=== PATIENT | female | born 1970 | race African-American/Black ===

== ENCOUNTER 2019-02-01 03:07 | Emergency (ER) | payer OTHER ==
[~2019-02-01] VITALS: Ht 172.7 cm; Wt 75.7 kg
[~2019-02-01 03:07] MED LIST: FOLI1TAB16 PO; ZIPR40CA2 PO
[2019-02-01] MEDS ORDERED: BENZ2TAB7 PO (03:15)
[2019-02-01] MEDS ORDERED: HALO2TAB9 PO (03:15)
--- NOTE | 2019-02-01 03:25 | NUR ---
DR. BONNER AT BEDSIDE FOR MSE.
[2019-02-01] MEDS ORDERED: KETOROLAC TROMETHAMINE 30 MG INJ IM ONE (03:30)
[2019-02-01] MEDS ORDERED: LORAZEPAM 0.5 MG TABLET PO ONE (03:30)
[2019-02-01] MEDS ORDERED: KETOROLAC TROMETHAMINE 30 MG INJ ONE (03:32)
[2019-02-01] MEDS ORDERED: LORAZEPAM 0.5 MG TABLET ONE (03:32)
--- NOTE | 2019-02-01 04:07 | NUR ---
Patient discharged to home in stable conditon. Written and verbal after care instructions given. Patient verbalizes understanding of instructions. PATIENT LEFT WITH STABLE GAIT.
[2019-02-01 04:08] VITALS: BP 117/63
== END 2019-02-01 04:08 | disposition home or self-care (01) ==
LOC: ER 03:11
DX: M25.512 Pain in left shoulder (principal); M62.830 Muscle spasm of back; F17.290 Nicotine dependence, other tobacco product, uncomplicated; Z71.6 Tobacco abuse counseling; Z79.899 Other long term (current) drug therapy
CPT/HCPCS: 71045; 73030; 93005; 96372; 99283; 99406; J1885; A4663

== ENCOUNTER 2019-09-06 13:18 | Emergency (ER) | END 2019-09-06 15:54 | disposition home or self-care (01) | DX: B35.4 Tinea corporis (principal); G89.29 Other chronic pain; R10.10 Upper abdominal pain, unspecified; D25.9 Leiomyoma of uterus, unspecified; F17.200 Nicotine dependence, unspecified, uncomplicated; Z79.899 Other long term (current) drug therapy ==

== ENCOUNTER 2020-01-11 08:25 | Emergency (ER) | payer MEDICAID ==
[~2020-01-11] VITALS: Ht 172.7 cm; Wt 77.1 kg
[~2020-01-11 08:25] MED LIST changes: +BENZ2TAB7 PO; +HALO2TAB9 PO; -ZIPR40CA2 PO
--- NOTE | 2020-01-11 08:45 | NUR ---
PATIENT WAS MSE BY DR HOGUE IN ROOM 04B.
[2020-01-11 09:21] LABS: CREATININE 1.2 mg/dL (0.6-1.3); POTASSIUM 4.3 mmol/L (3.5-5.1)
[2020-01-11 09:27] LABS: BILIRUBIN,DIRECT 0.1 mg/dL (0.0-0.2); BILIRUBIN,TOTAL 0.2 mg/dL (0.2-1.0); TOTAL PROTEIN, SERUM 8.1 g/dL (6.4-8.2)
[2020-01-11 09:36] LABS: BASOPHILS % (AUTO) 0.4 % (0.0-2.0); EOSINOPHILS # (AUTO) 0.2 K/uL (0.0-0.7); HEMATOCRIT 39.8 % (31.2-41.9); HEMOGLOBIN 13.7 g/dL (10.9-14.3); LYMPHOCYTES # (AUTO) 1.5 K/uL (20.0-40.0); LYMPHOCYTES % (AUTO) 38.5 % (20.5-51.5); MEAN CORPUSCULAR HEMOGLOBIN 36.2 uug (24.7-32.8); MEAN CORPUSCULAR HGB CONC 35 g/dL (32.3-35.6); MEAN CORPUSCULAR VOLUME 104.7 fL (75.5-95.3); MONOCYTES # (AUTO) 0.4 K/uL (2.0-10.0); MONOCYTES % (AUTO) 10.9 % (0.0-11.0); NEUTROPHILS # (AUTO) 1.8 K/uL (1.8-8.9); NEUTROPHILS % (AUTO) 45.2 % (38.5-71.5); PLATELET COUNT (AUTO) 202 K/uL (179-408)
--- NOTE | 2020-01-11 12:46 | NUR ---
DR HOGUE MADE PATIENT AWARE OF TEST RESULTS.
--- NOTE | 2020-01-11 12:49 | NUR ---
Patient discharged to home in stable condition. Written and verbal after care instructions given. Patient verbalizes understanding of instructions. Stressed follow up or return to ER for worsening s/s.
[2020-01-11 12:52] VITALS: BP 116/70
== END 2020-01-11 12:54 | disposition home or self-care (01) ==
LOC: ER 08:25
DX: R07.9 Chest pain, unspecified (principal); F17.200 Nicotine dependence, unspecified, uncomplicated; R05 Cough; F20.0 Paranoid schizophrenia; Z79.899 Other long term (current) drug therapy
CPT/HCPCS: 36415; 70030-TC; 71045; 85025; 93005; A4663

== ENCOUNTER 2020-03-25 20:26 | Emergency (ER) | payer SELFPAY ==
--- NOTE | 2020-03-25 20:30 | NUR ---
PT LEFT W/O BEING TRIAGED
== END 2020-03-25 20:30 | disposition left against medical advice (07) ==
LOC: ER 20:27
DX: Z75.3 Unavailability and inaccessibility of health-care facilities (principal)

== ENCOUNTER 2025-02-17 13:24 | Emergency (ER) | payer MEDICAID ==
[~2025-02-17] VITALS: Ht 172.7 cm; Wt 75.7 kg
[~2025-02-17 13:24] MED LIST changes: -FOLI1TAB16 PO; +FOLI1TAB94 PO
[2025-02-17 13:39] LABS: BASOPHILS % (AUTO) 0.3 % (0.0-2.0); EOSINOPHILS % (AUTO) 0.1 % (0.0-7.0); HEMATOCRIT 38.1 % (31.2-41.9); HEMOGLOBIN 13.1 g/dL (10.9-14.3); LYMPHOCYTES # (AUTO) 0.9 K/uL (0.8-4.8); LYMPHOCYTES % (AUTO) 9.8 % (20.5-51.5); MEAN CORPUSCULAR HEMOGLOBIN 34.7 uug (24.7-32.8); MEAN CORPUSCULAR HGB CONC 34 g/dL (32.3-35.6); MEAN CORPUSCULAR VOLUME 101.1 fL (75.5-95.3); MONOCYTES # (AUTO) 0.6 K/uL (0.1-1.30); MONOCYTES % (AUTO) 6.7 % (0.0-11.0); NEUTROPHILS # (AUTO) 7.9 K/uL (1.8-8.9); NEUTROPHILS % (AUTO) 83.1 % (38.5-71.5); PLATELET COUNT (AUTO) 235 K/uL (179-408); RED BLOOD CELL COUNT(AUTO) 3.77 MIL/uL (3.63-4.92); RED CELL DISTRIBUTION WIDTH 13.1 % (12.3-17.7); WHITE BLOOD COUNT (AUTO) 9.5 K/uL (3.8-11.8)
[2025-02-17] MEDS ORDERED: ONDANSETRON 4 MG/2 ML VIAL ONE ×2 (13:42→16:08)
[2025-02-17] MEDS: IV NORMAL SALINE 1000 ML BAG IV ONE (13:47)
[2025-02-17] MEDS: ONDANSETRON 4 MG/2 ML VIAL IV ONE ×2 (13:47→16:12)
[2025-02-17 13:55] LABS: DIFFERENTIAL COMMENT 1
[2025-02-17 14:12] LABS: CALCIUM 9.8 mg/dL (8.5-10.1); CREATININE 2.2 mg/dL (0.6-1.3); POTASSIUM 3.4 mmol/L (3.5-5.1)
[2025-02-17 14:17] LABS: ALBUMIN 4.2 g/dL (3.4-5.0); BILIRUBIN,DIRECT 0.1 mg/dL (0.0-0.2); BILIRUBIN,TOTAL 0.2 mg/dL (0.2-1.0); TOTAL PROTEIN, SERUM 8.6 g/dL (6.4-8.2)
[2025-02-17 14:35] LABS: *AMPHETAMINE, URINE NEGATIVE (NEGATIVE); *BARBITURATE, URINE NEGATIVE (NEGATIVE); *BENZODIAZEPINE, URINE NEGATIVE (NEGATIVE); *CANNABINOID, URINE POSITIVE (NEGATIVE); *COCCAINE, URINE NEGATIVE (NEGATIVE); *OPIATE, URINE NEGATIVE (NEGATIVE); *PHENCYCLIDINE SCREEN,URINE NEGATIVE (NEGATIVE); FENTANYL, URINE NEGATIVE (NEGATIVE)
[2025-02-17 14:44] LABS: ETHANOL < 3 MG/DL (0-10)
[2025-02-17 15:03] LABS: *BLOOD, URINE 2+ (NEGATIVE); *CLARITY,URINE CLEAR (CLEAR); *COLOR,URINE YELLOW (YELLOW); *KETONES,URINE NEGATIVE (NEGATIVE); *PROTEIN,URINE 2+ (NEGATIVE); *UROBILINOGEN,URINE 0.2 E.U./dl (NORMAL); LEUKOCYTE ESTERASE ,URINE NEGATIVE (NEGATIVE); NITRITE, URINE NEGATIVE (NEGATIVE); PH,URINE 5.5 (5.0-8.0); UGLUCOSE NEGATIVE (NEGATIVE)
[2025-02-17 15:30] LABS: *BILIRUBIN,URIN 1+ (NEGATIVE)
[2025-02-17 15:31] LABS: *URINE HCG, QUAL NEGATIVE (NEGATIVE)
[2025-02-17 15:56] LABS: SQUAMOUS EPITHELIAL CELL,UR FEW /HPF (NONE SEEN)
[2025-02-17] MEDS ORDERED: LIDOCAINE VISCUS 2% 15 ML UDC ONE (16:01)
[2025-02-17] MEDS ORDERED: MAG HYDROX/AL HYDROX/SIMETH 30 ML LIQUID UDC ONE (16:01)
[2025-02-17] MEDS ORDERED: FAMOTIDINE. 20 MG/2 ML VIAL IV ONE (16:02)
[2025-02-17] MEDS: FAMOTIDINE. 20 MG/2 ML VIAL IV ONE (16:12)
[2025-02-17] MEDS: MAG HYDROX/AL HYDROX/SIMETH 30 ML LIQUID UDC PO ONE (16:42)
[2025-02-17] MEDS: LIDOCAINE VISCUS 2% 15 ML UDC MM ONE (16:42)
[2025-02-17] MEDS ORDERED: IBUP-1955 PO (17:00)
[2025-02-17] MEDS ORDERED: ONDA4TAB5 PO (17:00)
[2025-02-17] MEDS ORDERED: FAMO-132 PO (17:00)
[2025-02-17] MEDS ORDERED: POLY17PO4 PO (17:02)
[2025-02-17 17:19] VITALS: BP 125/68; O2SAT 99
== END 2025-02-17 17:11 | disposition home or self-care (01) ==
LOC: ER 13:24
DX: N13.2 Hydronephrosis with renal and ureteral calculous obstruction (principal); R11.2 Nausea with vomiting, unspecified; K59.00 Constipation, unspecified; E87.6 Hypokalemia; F17.200 Nicotine dependence, unspecified, uncomplicated; F20.0 Paranoid schizophrenia; Z79.899 Other long term (current) drug therapy; Z87.59 Personal history of other complications of pregnancy, childbirth and the puerperium; Z60.2 Problems related to living alone
CPT/HCPCS: 36415; 83690; 84703; 85025; A4606; A4663; G0480; J1308; J2405; J7040